=== PATIENT | male | born 1980 | race Caucasian/White ===

== ENCOUNTER 2017-10-03 21:41 | Inpatient (IN) | payer OTHER ==
[~2017-10-03] VITALS: Ht 177.8 cm; Wt 146.0 kg
[~2017-10-03 21:41] MED LIST: ALTACE2.5 MG PO; BUPROPION HCL150 M2 PO; LEXAPRO20 MG PO; LOPID600 MG PO; NAPROSYN500 MG PO; NEW MED; PRAVACHOL20 MG PO
[2017-10-04] MEDS ORDERED: TOPROL XL50 MG PO (05:53)
[2017-10-04 05:54] VITALS: BP 135/80
[2017-10-04 11:35] LABS: COMMENTS - BLOOD GASES A+C+; METHEMOGLOBIN 1.1 % (0-1.5); PCO2 36 mm Hg (35-45); PO2 127 mm Hg (80-100); pH 7.38 (7.35-7.45)
[2017-10-04 11:36] LABS: BASE EXCESS -3.3 mEq/L (-3 to +3); BICARBONATE 21.3 mEq/L (22-26)
[2017-10-04 13:10] LABS: DEVICE VENT; FI02 100 %; MECHANICAL RATE 22 resp/min; MODE A/C; SITE ALINE; TIDAL VOLUME 700 ML; TOTAL RESP RATE 22 resp/min
[2017-10-04 13:11] LABS: CARBOXY HGB 1.9 % (0-5); PCO2 49 mm Hg (35-45); PEEP 8 CM/H20; PO2 59 mm Hg (80-100); pH 7.14 (7.35-7.45)
[2017-10-04 13:12] LABS: BASE EXCESS -12.3 mEq/L (-3 to +3); BICARBONATE 16.7 mEq/L (22-26)
[2017-10-04 13:15] LABS: COMMENTS - BLOOD GASES C+
[2017-10-04 13:55] LABS: CHLORIDE 104 MEQ/L (99-109); CREATININE 1.1 MG/DL (0.6-1.3); GFR ESTIMATE (CALCULATED) > 59 mL/min/ (58.99-99999); GLUCOSE 217 mg/dL (70-99); POTASSIUM 4.4 MEQ/L (3.7-5.4); SODIUM 137 MEQ/L (136-147); UREA NITROGEN (BUN) 15 mg/dL (9-23)
[2017-10-04 16:00] VITALS: BP 94/47
[2017-10-04 18:00] VITALS: BP 99/70
[2017-10-04 19:11] LABS: COMMENTS - BLOOD GASES C+; DEVICE VENT; SITE RR A-LINE
[2017-10-04 19:12] LABS: FI02 100 %
[2017-10-04 19:13] LABS: MECHANICAL RATE 25 resp/min; MODE AC/VC; PCO2 29 mm Hg (35-45); PEEP 8 CM/H20; PO2 71 mm Hg (80-100); TIDAL VOLUME 700 ML; TOTAL RESP RATE 25 resp/min; pH 7.44 (7.35-7.45)
[2017-10-04 19:14] LABS: BASE EXCESS -3.5 mEq/L (-3 to +3); BICARBONATE 19.7 mEq/L (22-26); CARBOXY HGB 1.6 % (0-5); METHEMOGLOBIN 0.8 % (0-1.5)
[2017-10-04 20:00] VITALS: BP 118/69
[2017-10-04 22:00] VITALS: BP 146/69
[2017-10-04 23:00] VITALS: BP 146/69
[2017-10-05] VITALS (17 sets, daily range): BP systolic 98–162; BP diastolic 55–95
[2017-10-05 06:48] LABS: HEMATOCRIT 36.1 % (38.0-50.0); HEMOGLOBIN 11.8 G/DL (12.5-16.6); MCHC 32.7 G/DL (30.0-36.0); MCV 85.5 FL (86-99); PLATELET COUNT 303 K/uL (156-360); RBC DIS.WIDTH-CV 13.6 % (11.8-14.6); RBC DIS.WIDTH-SD 42.5 % (39-53); RED BLOOD COUNT 4.22 M/uL (4.00-5.50); WHITE BLOOD COUNT 14.6 K/uL (4.1-10.2)
[2017-10-05 07:07] LABS: CHLORIDE 104 MEQ/L (99-109); CREATININE 0.8 MG/DL (0.6-1.3); GFR ESTIMATE (CALCULATED) > 59 mL/min/ (58.99-99999); GLUCOSE 179 mg/dL (70-99); POTASSIUM 3.7 MEQ/L (3.7-5.4); SODIUM 137 MEQ/L (136-147); UREA NITROGEN (BUN) 12 mg/dL (9-23)
[2017-10-05 07:37] LABS: COMMENTS - BLOOD GASES ALINE; DEVICE VENT; FI02 80 %; MECHANICAL RATE 25 resp/min; MODE AC; PCO2 33 mm Hg (35-45); PEEP 8 CM/H20; PO2 53 mm Hg (80-100); SITE RR; TIDAL VOLUME 500 ML; TOTAL RESP RATE 25 resp/min; pH 7.46 (7.35-7.45)
[2017-10-05 07:38] LABS: BASE EXCESS 0.2 mEq/L (-3 to +3); BICARBONATE 23.5 mEq/L (22-26); CARBOXY HGB 1.7 % (0-5); METHEMOGLOBIN 1.2 % (0-1.5)
[2017-10-06] VITALS (24 sets, daily range): BP systolic 109–149; BP diastolic 55–86
[2017-10-06 09:30] LABS: CHLORIDE 105 MEQ/L (99-109); CREATININE 0.8 MG/DL (0.6-1.3); GFR ESTIMATE (CALCULATED) > 59 mL/min/ (58.99-99999); GLUCOSE 186 mg/dL (70-99); POTASSIUM 4.1 MEQ/L (3.7-5.4); SODIUM 139 MEQ/L (136-147); UREA NITROGEN (BUN) 15 mg/dL (9-23)
[2017-10-07] VITALS (24 sets, daily range): BP systolic 115–150; BP diastolic 59–86
[2017-10-07 02:33] LABS: BASOPHIL (%) 0 % (0-1); EOSINOPHIL (%) 0 % (0-5); HEMATOCRIT 32.4 % (38.0-50.0); HEMOGLOBIN 10.6 G/DL (12.5-16.6); IMMATURE GRANULOCYTE (%) 1.1 % (0.0-0.7); LYMPHOCYTE (%) 10.4 % (15-42); LYMPHOCYTE COUNT 1.2 K/uL (1.0-2.8); MCH 28.6 PG (29.0-34.0); MCHC 32.7 G/DL (30.0-36.0); MCV 87.3 FL (86-99); MONOCYTE COUNT 0.7 K/uL (0-0.8); NEUTROPHIL (%) 82.5 % (45-76); NEUTROPHIL COUNT 9.7 K/uL (1.8-6.4); NRBC (%) 0.2 /100 WBC (0-0); PLATELET COUNT 239 K/uL (156-360); RBC DIS.WIDTH-CV 13.5 % (11.8-14.6); RBC DIS.WIDTH-SD 42.7 % (39-53); RED BLOOD COUNT 3.71 M/uL (4.00-5.50); WHITE BLOOD COUNT 11.8 K/uL (4.1-10.2)
[2017-10-07 02:40] LABS: CHLORIDE 108 mEq/L (99-109); SODIUM 143 mEq/L (136-147)
[2017-10-07 02:42] LABS: GLUCOSE 160 mg/dL (70-99)
[2017-10-07 02:45] LABS: CREATININE 0.8 mg/dL (0.6-1.3); GFR ESTIMATE (CALCULATED) > 59 mL/min/ (58.99-99999)
[2017-10-07 02:46] LABS: UREA NITROGEN (BUN) 21 mg/dL (9-23)
[2017-10-08] VITALS (23 sets, daily range): BP systolic 85–137; BP diastolic 49–77
[2017-10-08 10:32] LABS: COMMENTS - BLOOD GASES A+C+; DEVICE 840; FI02 97 %; MECHANICAL RATE 25 resp/min; MODE A/C; SITE LR; TIDAL VOLUME 700 ML; TOTAL RESP RATE 25 resp/min
[2017-10-08 10:33] LABS: PCO2 38 mm Hg (35-45); PEEP 10 CM/H20; PO2 67 mm Hg (80-100)
[2017-10-08 10:34] LABS: BASE EXCESS -1.1 mEq/L (-3 to +3); BICARBONATE 23.5 mEq/L (22-26); CARBOXY HGB 1.5 % (0-5)
[2017-10-08 11:14] LABS: CHLORIDE 108 MEQ/L (99-109); CREATININE 0.9 MG/DL (0.6-1.3); GFR ESTIMATE (CALCULATED) > 59 mL/min/ (58.99-99999); GLUCOSE 181 mg/dL (70-99); POTASSIUM 3.6 MEQ/L (3.7-5.4); SODIUM 142 MEQ/L (136-147)
[2017-10-08 11:29] LABS: UREA NITROGEN (BUN) 32 mg/dL (9-23)
[2017-10-09] VITALS (23 sets, daily range): BP systolic 99–174; BP diastolic 55–84
[2017-10-09 04:31] LABS: BASOPHIL (%) 0.1 % (0-1); EOSINOPHIL (%) 0 % (0-5); HEMOGLOBIN 11.1 G/DL (12.5-16.6); IMMATURE GRANULOCYTE (%) 1.7 % (0.0-0.7); LYMPHOCYTE (%) 10.4 % (15-42); LYMPHOCYTE COUNT 1.3 K/uL (1.0-2.8); MCH 28.8 PG (29.0-34.0); MCHC 32.6 G/DL (30.0-36.0); MCV 88.3 FL (86-99); MONOCYTE (%) 5.8 % (3-12); MONOCYTE COUNT 0.8 K/uL (0-0.8); NEUTROPHIL COUNT 10.5 K/uL (1.8-6.4); NRBC (%) 0.5 /100 WBC (0-0); PLATELET COUNT 258 K/uL (156-360); RBC DIS.WIDTH-CV 13.2 % (11.8-14.6); RBC DIS.WIDTH-SD 41.9 % (39-53); RED BLOOD COUNT 3.85 M/uL (4.00-5.50); WHITE BLOOD COUNT 12.8 K/uL (4.1-10.2)
[2017-10-09 04:37] LABS: ALBUMIN 3.8 g/dL (3.2-4.8); CHLORIDE 111 mEq/L (99-109); POTASSIUM 3.7 mEq/L (3.7-5.4); SODIUM 143 mEq/L (136-147)
[2017-10-09 04:39] LABS: GLUCOSE 195 mg/dL (70-99); TOTAL PROTEIN 6.4 g/dL (6.4-8.3)
[2017-10-09 04:41] LABS: TOTAL BILIRUBIN 0.4 mg/dL (0.0-1.0)
[2017-10-09 04:43] LABS: COMMENTS - BLOOD GASES C+; DEVICE VENT; FI02 100 %; SITE RR
[2017-10-09 04:43] LABS: ALKALINE PHOSPHATASE 49 IU/L (3-129); GFR ESTIMATE (CALCULATED) > 59 mL/min/ (58.99-99999)
[2017-10-09 04:44] LABS: MECHANICAL RATE 25 resp/min; MODE AC; PCO2 34 mm Hg (35-45); PEEP 10 CM/H20; PO2 72 mm Hg (80-100); TIDAL VOLUME 700 ML; TOTAL RESP RATE 25 resp/min; pH 7.41 (7.35-7.45)
[2017-10-09 04:44] LABS: UREA NITROGEN (BUN) 38 mg/dL (9-23)
[2017-10-09 04:45] LABS: AST (GOT) 17 IU/L (2-34)
[2017-10-09 04:45] LABS: BASE EXCESS -2.5 mEq/L (-3 to +3); BICARBONATE 21.6 mEq/L (22-26); CARBOXY HGB 1.2 % (0-5); O2 SATURATION (CALCULATED) 94.4 % (95-99)
[2017-10-09 04:46] LABS: ALT (GPT) 21 IU/L (3-49)
[2017-10-10] VITALS (24 sets, daily range): BP systolic 93–148; BP diastolic 57–102
[2017-10-11] VITALS (21 sets, daily range): BP systolic 92–150; BP diastolic 53–108
[2017-10-11 10:28] LABS: BASOPHIL (%) 0.2 % (0-1); BASOPHIL COUNT 0.1 K/uL (0-0.1); EOSINOPHIL (%) 0 % (0-5); HEMOGLOBIN 12.2 G/DL (12.5-16.6); IMMATURE GRANULOCYTE (%) 2.8 % (0.0-0.7); LYMPHOCYTE COUNT 1.4 K/uL (1.0-2.8); MCH 28.4 PG (29.0-34.0); MCHC 32.1 G/DL (30.0-36.0); MCV 88.4 FL (86-99); MONOCYTE (%) 5.3 % (3-12); MONOCYTE COUNT 1.5 K/uL (0-0.8); NEUTROPHIL (%) 86.7 % (45-76); NEUTROPHIL COUNT 23.9 K/uL (1.8-6.4); NRBC (%) 0.2 /100 WBC (0-0); PLATELET COUNT 212 K/uL (156-360); RBC DIS.WIDTH-CV 13.4 % (11.8-14.6); WHITE BLOOD COUNT 27.6 K/uL (4.1-10.2)
[2017-10-11 10:53] LABS: CHLORIDE 107 MEQ/L (99-109); CREATININE 0.9 MG/DL (0.6-1.3); GFR ESTIMATE (CALCULATED) > 59 mL/min/ (58.99-99999); GLUCOSE 248 mg/dL (70-99); POTASSIUM 3.7 MEQ/L (3.7-5.4); SODIUM 145 MEQ/L (136-147); UREA NITROGEN (BUN) 40 mg/dL (9-23)
[2017-10-12] VITALS (17 sets, daily range): BP systolic 109–148; BP diastolic 66–96
[2017-10-12 12:47] LABS: APPEARANCE CLEAR ((CLEAR)); BILIRUBIN NEGATIVE; BLOOD MODERATE; COLOR AMBER ((YELLOW)); GLUCOSE (STRIP) NEGATIVE; KETONES 5; LEUKOCYTES NEGATIVE; NITRITE NEGATIVE; PROTEIN (STRIP) 100; SPECIFIC GRAVITY 1.038 (1.000-1.030); UROBILINOGEN 0.2 MG/DL (0.2-1.0)
[2017-10-12 12:51] LABS: BACTERIA NONE SEEN /HPF; EPITHELIAL CELLS NONE SEEN /HPF; MUCUS TRACE /LPF; RED BLOOD CELLS TNTC /HPF (0-5); UCUL ADDED? YES; WHITE BLOOD CELLS 0-5 /HPF (0-5)
== END 2017-10-12 19:30 | DRG 25 ==
LOC: ENRESERV 21:41 → 2SOUTH 10-04 04:58 → 4WEST 10-04 04:58 → 2SOUTH 10-04 10:26 → ENRESERV 10-04 12:46 → 4WEST 10-04 15:23
PROVIDERS: Internal Medicine Critical Care Medicine; Neurological Surgery; Psychiatry & Neurology Clinical Neurophysiology; Surgery
DX: G93.5 Compression of brain (principal); G93.6 Cerebral edema; G93.40 Encephalopathy, unspecified; J69.0 Pneumonitis due to inhalation of food and vomit; J96.01 Acute respiratory failure with hypoxia; Z68.43 Body mass index [BMI] 50.0-59.9, adult; F33.9 Major depressive disorder, recurrent, unspecified; Z51.5 Encounter for palliative care; Z66 Do not resuscitate; G93.89 Other specified disorders of brain; M85.68 Other cyst of bone, other site; E66.01 Morbid (severe) obesity due to excess calories; G43.909 Migraine, unspecified, not intractable, without status migrainosus; R56.9 Unspecified convulsions; E78.5 Hyperlipidemia, unspecified; F41.9 Anxiety disorder, unspecified; Z87.891 Personal history of nicotine dependence; Z88.0 Allergy status to penicillin; Z88.2 Allergy status to sulfonamides; Z81.8 Family history of other mental and behavioral disorders; Z82.0 Family history of epilepsy and other diseases of the nervous system
CPT/HCPCS: 36600; 70450; 71045; 80048; 80053; 80164; 81003; 82948; 83930; 85025; 85027; 87040; 87070; 87075; 87076; 87077; 87086; 87116; 87186; 87205; 87206; 87641; 88305; 88311; 88331; 94002; 94003; 94760; 94799; 95819; C1713; J0330; J0692; J0696; J1100; J1120; J1580; J1815; J1940; J1953; J2060; J2250; J2270; J2704; J3010; J3370; J3480; J7050; S0028